=== PATIENT | male | born 1955 | race Caucasian/White ===

== ENCOUNTER 2017-05-26 16:50 | Inpatient (IN) ==
[2017-05-26] MEDS: SALINE FLUSH 10ml SYRINGE IVF PRN (17:15)
--- NOTE | 2017-05-26 17:17 | Emergency Department Report ---
Syncope HPI - General Chief Complaint: Syncope <Tete Joyce 05/26/17 17:20> Stated Complaint: Pulmonary Embolism <Maria Del CarmenMariolaTete Rere Tavo 05/26/17 17:20> Time Seen by Provider: 05/26/17 16:55 <Mariola Joycean Rere Tavo 05/26/17 17:20> Source: patient <Tete Joyce 05/26/17 17:20> Mode of arrival: ambulatory <Maria Del CarmenTete Rere Tavo 05/26/17 17:20> Limitations: no limitations <Mariola Joycean Rere Vo 05/26/17 17:20> - History of Present Illness HPI narrative: Pt presents with a c/o syncope. PT was here in late April with a c/o hip pain , chest pain and SOA when it was discovered he had a PE. Pt was then transferred to [facility] for treatment for PE as well as a left hip fracture. Once hip repaired pt was sent to a rehab facility from which he was dismissed to home 3 days ago. While in rehab pt was having some "dizzy spells" and discovered to have orthostatic hypotension. He is scheduled to see a client services administrator next wee. Since pt has been home he has had multiple episodes of LOC where he often finds himself waking on the floor with no idea to what happened prior. Pt lives by himself. <Maria Del CarmenMariolaTetesusan Vo 05/26/17 17:20> MD complaint: loss of consciousness <Tete Joyce 05/26/17 17:20> Onset (ago): unknown <Tete Joyce 05/26/17 17:20> Prodromal symptoms: none <Tete Joyce 05/26/17 17:20> Witnessed: no <Tete Joyce 05/26/17 17:20> Injuries sustained associated with event: none <Tete Joyce 05/26/17 17:20> Current symptoms: none <Tete Joyce 05/26/17 17:20> Treatments prior to arrival: none <Tete Joyce 05/26/17 17:20> - Related Data Home Medications Medication Instructions Recorded Confirmed Aspirin [Adult Aspirin Regimen] 81 mg PO DAILY 05/26/17 05/26/17 Atorvastatin [Lipitor] 20 mg PO HS 05/26/17 05/26/17 Escitalopram Oxalate [Lexapro] 10 mg PO DAILY 05/26/17 05/26/17 Fludrocortisone [Florinef] 0.1 mg PO BID 05/26/17 05/26/17 Insulin Aspart [Novolog] 1 - 5 unit SQ TIDWM 05/26/17 05/26/17 Metformin [Glucophage] 500 mg PO BIDWM 05/26/17 05/26/17 Midodrine [Proamatine] 10 mg PO TID 05/26/17 05/26/17 Multivit-Min/FA/Lycopen/Lutein 1 each PO DAILY 05/26/17 05/26/17 [Centrum Silver Tablet] Rivaroxaban [Xarelto] 15 mg PO WS 05/26/1718 <Tete Joyce 05/26/17 17:20> Allergies Allergy/AdvReac Type Severity Reaction Status Date / Time No Known Allergies Allergy Verified 05/26/17 17:35 <Tete Joyce 05/26/17 17:20> Review of Systems All systems: reviewed and negative except as stated <Tete Joyce 17:20> Constitutional: Reports: as per HPI <Tete Joyce 05/26/17 17:20> Cardiovascular: Reports: as per HPI <Tete Joyce 05/26/17 17:20> Respiratory: Reports: as per HPI <Tete Joyce 05/26/17 17:20> Genitourinary: Reports: as per HPI <Tete Joyce 05/26/17 17:20> [facility] Patient Stated Medical History Diabetes Mellitus Type 1 Yes <Tete Joyce 05/26/17 17:20> - Social History Smoking status: Unknown if ever smoked <Tete Joyce 05/26/17 17:20> Physical Exam - Limitations Limitations: no limitations <Tete Joyce 05/26/17 17:20> - General General appearance: alert, in no apparent distress <Tete Joyce 05/26 /18 17:20> - Normal Exams: Head:: Normocephalic without trauma <Tete Joyce 05/26/17 17:20> Eyes:: Pupils are PERRLA w/ EOMI <Tete Joyce 05/26/17 17:20> Chest/Respirations:: Clear all carrera, with good airflow <Tete Joyce 05/26/17 17:20> Cardiovascular:: Regular rate and rhythm, without murmur or gallop, Pulses 2+ all extremities, capillary refill, <2 seconds all extremities <Tete Joyce 05/26/17 17:20> Abdomen:: Bowel sounds positive, soft, non-tender, non-distended <Tete Joyce 05/26/17 17:20> Musculoskeletal:: No tenderness, or deformity noted, good range of motion, all extremities <Tete Joyce 05/26/17 17:20> Integumentary:: No rashes <Tete Joyce 05/26/17 17:20> Neurological:: Patient is alert, and oriented, cranial nerves, motor/sensory/ cerebellar, exams w/o gross deficits, to observation <Tete Joyce 17:20> Psychiatric:: Patient exhibits, appropriate attention, emotion and affect < Tete Joyce 05/26/17 17:20> Course Vital Signs Temperature 97.5 F 05/26/17 16:53 Pulse Rate 89 05/26/17 16:53 Respiratory Rate 18 05/26/17 16:53 Blood Pressure 93/57 05/26/17 16:53 Pulse Oximetry 100 05/26/17 16:53 Temperature 97.5 F 05/26/17 16:53 Pulse Rate 88 05/26/17 19:00 Respiratory Rate 20 05/26/17 18:30 Blood Pressure 131/79 05/26/17 19:00 Pulse Oximetry 98 05/26/17 19:00 <Tete Joyce 05/26/17 19:14> Syncope - MDM Narrative Medical decision making narrative: Lab and EKG reviewed. Pt extremely orthostatic. Pt received NS bolus followed by continuous fluids. PT has not had any syncopal episodes while in the ER. Dr Gallegos notified or HPI and findings will admit observations. <Tete Joyce - 05/26/17 19:14> - Differential Diagnosis Likely: syncope due to orthostatic hypotension, vasovagal syncope, dehydration <Tete Joyce - 05/26/17 17:20> - Lab Data Attestation: I reviewed the patient's lab results. <Tete Joyce - 05/26 19:14> Result diagrams: 05/26/17 17:20 05/26/17 17:20 <Tete Joyce - 05/26/17 17:20> Lab Results 05/26/17 05/26/17 05/26/17 Range/Units 17:20 17:20 18:10 WBC 8.9 (4.5-11.0) T/MM3 RBC 4.36 L (4.50-5.90) M/MM3 Hgb 12.5 L (13.5-17.5) GM/DL Hct 37.4 L (41-53) % MCV 85.8 (80-100) UM3 MCH 28.7 (26-34) UUG MCHC 33.4 (31-37) GM/DL RDW Std Deviation 40.0 (36.9-50.2) FL Plt Count 670 H D (130-400) T/MM3 MPV 9.3 L (9.4-12.4) UM3 Immature Gran % (Auto) 0.4 (0.0-0.5) % Neut % (Auto) 53.9 (33-66) % Lymph % (Auto) 33.1 (23-45) % [place] % (Auto) 7.6 (0-9.0) % Eos % (Auto) 4.3 H (0-4) % Baso % (Auto) 0.7 (0-2) % Neut # (Auto) 4.8 (1.8-7.7) T/MM3 Lymph # (Auto) 3.0 (1-4.8) T/MM3 [place] # (Auto) 0.7 (0-0.8) T/MM3 Eos # (Auto) 0.4 (0-0.5) T/MM3 Baso # (Auto) 0.1 (0-0.2) T/MM3 Abs Immat Gran (auto) 0.04 H (0.00-0.03) T/MM3 Turbidity < 20 (0-20) Sodium 139 (134-144) MEQ/L Potassium 4.1 (3.6-5) MEQ/L Chloride 98 (98-107) MEQ/L Carbon Dioxide 28 (22-30) MEQ/L Anion Gap 13 (5-15) MEQ/L BUN 28.0 H (9-20) MG/DL Creatinine 1.2 (0.8-1.5) MG/DL GFR Calculation 62 BUN/Creatinine Ratio 23 (6-26) RATIO Glucose 119 H (75-110) MG/DL Calculated Osmolality 275 (261-280) MOSM/KG Calcium 9.9 (8.4-10.2) MG/DL Total Bilirubin 0.60 (0.20-1.30) MG/DL Icterus Index < 2 (0-7) AST 20 (17-59) U/L ALT 33 (21-72) U/L Alkaline Phosphatase 100 (38-126) U/L Troponin I < 0.012 (0-0.12) ng/ml Total Protein 7.8 (6.3-8.2) G/DL Albumin 4.5 (3.5-5.0) G/DL Globulin 3.3 (2.4-3.6) G/DL Albumin/Globulin Ratio 1.4 (1.1-2.2) RATIO Specimen Hemolysis < 15 (0-25) Ur Collection Type Urine, clean catch Urine Color Yellow (YELLOW) Urine Clarity Sl cloudy Urine pH 5.5 (5.0-8.0) Ur Specific [place] >=1.030 H (1.015-1.025) Urine Protein 1+ A (NEGATIVE) Urine Glucose (UA) Negative (NEGATIVE) Urine Ketones Negative (NEGATIVE) Urine Occult Blood Negative (NEGATIVE) Urine Nitrate Negative (NEGATIVE) Urine Bilirubin Negative (NEGATIVE) Urine Urobilinogen 0.2 (NORMAL) EU/DL Ur Leukocyte Esterase Negative (NEGATIVE) Urine RBC 0-1 (0-3) /HPF Urine WBC 0-1 (0-5) /HPF Ur Squamous Epith Cells 5-10 Urine Bacteria Trace H (NEGATIVE) Hyaline Casts 1-3 /LPF Urine Mucus Present Ur Culture Indicated? Cult not indicated Urine Opiates Screen ng/mL Ur Oxycodone Screen ng/mL Urine Methadone Screen ng/mL Ur Propoxyphene Screen ng/mL Ur Barbiturates Screen ng/mL U Tricyclic Antidepress ng/mL Ur Phencyclidine Scrn ng/mL Ur Amphetamines Screen ng/mL U Methamphetamines Scrn ng/mL U Benzodiazepines Scrn ng/mL Urine Cocaine Screen ng/mL U Cannabinoids Screen ng/mL 05/26/17 Range/Units 18:10 WBC (4.5-11.0) T/MM3 RBC (4.50-5.90) M/MM3 Hgb (13.5-17.5) GM/DL Hct (41-53) % MCV (80-100) UM3 MCH (26-34) UUG MCHC (31-37) GM/DL RDW Std Deviation (36.9-50.2) FL Plt Count (130-400) T/MM3 MPV (9.4-12.4) UM3 Immature Gran % (Auto) (0.0-0.5) % Neut % (Auto) (33-66) % Lymph % (Auto) (23-45) % [place] % (Auto) (0-9.0) % Eos % (Auto) (0-4) % Baso % (Auto) (0-2) % Neut # (Auto) (1.8-7.7) T/MM3 Lymph # (Auto) (1-4.8) T/MM3 [place] # (Auto) (0-0.8) T/MM3 Eos # (Auto) (0-0.5) T/MM3 Baso # (Auto) (0-0.2) T/MM3 Abs Immat Gran (auto) (0.00-0.03) T/MM3 Turbidity (0-20) Sodium (134-144) MEQ/L Potassium (3.6-5) MEQ/L Chloride (98-107) MEQ/L Carbon Dioxide (22-30) MEQ/L Anion Gap (5-15) MEQ/L BUN (9-20) MG/DL Creatinine (0.8-1.5) MG/DL GFR Calculation BUN/Creatinine Ratio (6-26) RATIO Glucose (75-110) MG/DL Calculated Osmolality (261-280) MOSM/KG Calcium (8.4-10.2) MG/DL Total Bilirubin (0.20-1.30) MG/DL Icterus Index (0-7) AST (17-59) U/L ALT (21-72) U/L Alkaline Phosphatase (38-126) U/L Troponin I (0-0.12) ng/ml Total Protein (6.3-8.2) G/DL Albumin (3.5-5.0) G/DL Globulin (2.4-3.6) G/DL Albumin/Globulin Ratio (1.1-2.2) RATIO Specimen Hemolysis (0-25) Ur Collection Type Urine Color (YELLOW) Urine Clarity Urine pH (5.0-8.0) Ur Specific [place] (1.015-1.025) Urine Protein (NEGATIVE) Urine Glucose (UA) (NEGATIVE) Urine Ketones (NEGATIVE) Urine Occult Blood (NEGATIVE) Urine Nitrate (NEGATIVE) Urine Bilirubin (NEGATIVE) Urine Urobilinogen (NORMAL) EU/DL Ur Leukocyte Esterase (NEGATIVE) Urine RBC (0-3) /HPF Urine WBC (0-5) /HPF Ur Squamous Epith Cells Urine Bacteria (NEGATIVE) Hyaline Casts /LPF Urine Mucus Ur Culture Indicated? Urine Opiates Screen Negative ng/mL Ur Oxycodone Screen Negative ng/mL Urine Methadone Screen Negative ng/mL Ur Propoxyphene Screen Negative ng/mL Ur Barbiturates Screen Negative ng/mL U Tricyclic Antidepress Negative ng/mL Ur Phencyclidine Scrn Negative ng/mL Ur Amphetamines Screen Negative ng/mL U Methamphetamines Scrn Negative ng/mL U Benzodiazepines Scrn Negative ng/mL Urine Cocaine Screen Negative ng/mL U Cannabinoids Screen Negative ng/mL <Tete Joyce 05/26/17 19:14> - EKG Data EKG #1 EKG attestation: Yes: I reviewed and interpreted this EKG. <Tete Joyce 05/26/17 19:14> Yes: I reviewed and interpreted this EKG. <September,Manfred 05/26 17:47> EKG shows normal: sinus rhythm, intervals, QRS complexes, ST-T waves <September, Manfred 05/26/17 17:47> Hiram/QRS: left axis deviation <September,Manfred 05/26/17 17:47> Disposition Clinical Impression: Orthostatic hypotension <Tete Joyce 05/26/17 19:14> Disposition: 02 To [facility] [place] <Tete Joyce 05/26/17 19:14> Condition: Improved <Tete Joyce 05/26/17 19:14> Instructions: <Tete Joyce 05/26/17 17:20> Prescriptions: No Action Escitalopram Oxalate [Lexapro] 10 mg PO DAILY Atorvastatin [Lipitor] 20 mg PO HS Metformin [Glucophage] 500 mg PO BIDWM Insulin Aspart [Novolog] 1 - 5 unit SQ TIDWM Rivaroxaban [Xarelto] 15 mg PO WS Multivit-Min/FA/Lycopen/Lutein [Centrum Silver Tablet] 1 each PO DAILY Fludrocortisone [Florinef] 0.1 mg PO BID Midodrine [Proamatine] 10 mg PO TID Aspirin [Adult Aspirin Regimen] 81 mg PO DAILY <Tete Joyce 17:20> Referrals: Chalino Thrasher II, MD [Family Provider] - <Tete Joyce 05/26/17 17:20> Forms: <Tete Joyce 05/26/17 17:20> Time of Disposition: 19:14 <Tete Joyce 05/26/17 19:14> - Seen By: midlevel <Tete Joyce 05/26/17 19:14>
[2017-05-26] MEDS ORDERED: NS 1,000 ML IV ONE (17:39)
[2017-05-26] MEDS: NS 1,000 ML IV SCH ×2 (19:28→23:43)
--- NOTE | 2017-05-26 19:40 | History & Physical Report ---
History of Present Illness Date: 05/27/17 Chief complaint: syncope HPI: Very pleasant 61-year-old male presents to the emergency room with syncope. He' s had 2 episodes of syncope since being discharged from his rehab stay on Wednesday.p Come essentially with no prodrome, but they have become when he's been standing and using his walker. He is actually had orthostasis and has had multiple syncopal episodes even during his rehab stay and even prior to that. He was recently treated for a saddle pulmonary embolism and fell and broke his hip. This was repaired, he was treated for the pulmonary embolism (not sure if he was thrombolyzed). He does take Midorine and Florinef but does not take any blood pressure lowering agents, he has not had nausea or vomiting. He denies diarrhea. He denies any fever or chills. His home health nurse came to check on him today, they felt he was ill, and actually were unable to even register a blood pressure when he stood. Because of this he recommended he return to the emergency room. He states that he had an echocardiogram performed when he was on his rehab stay but he didn't learn the results. He doesn't know if he had other workup regarding his adrenal glands. He's never had a colonoscopy before. He doesn't know if he had CT of his abdomen or other workup for occult malignancy. He's had recent weight loss over the past weeks of about 45 pounds was unintentional. He's been quite fatigued but he denies any night sweats. He denies dysphagia or odynophagia and denies abdominal pain. He denies need for any pain medicines for his recent hip fracture. He does have some mild neuropathy in his fingers in his toes but he says that has not been progressive over the past 3 years. His sugars typically range from 150- 250 in his hemoglobin A1c uses hasn't been checked since 2013 he thinks. Review of Systems All systems PM: 10-point ROS was reviewed, no additional remarkable complaints except Past Medical History Patient Stated Medical History Diabetes Mellitus Type 1 Yes Medical History Updates: Saddle pulmonary embolism now on anticoagulation. Diabetes mellitus type 2 with peripheral neuropathy Surgical History: hip replacement after fracture Family History Updates: asked and noncontributory - Social History Smoking status: Unknown if ever smoked Medications Home Medications Medication Instructions Recorded Confirmed Type Aspirin [Adult Aspirin Regimen] 81 mg PO DAILY 05/26/17 05/26/17 History Atorvastatin [Lipitor] 20 mg PO HS 05/26/17 05/26/17 History Escitalopram Oxalate [Lexapro] 10 mg PO DAILY 05/26/17 05/26/17 History Fludrocortisone [Florinef] 0.1 mg PO BID 05/26/17 05/26/17 History Insulin Aspart [Novolog] 1 - 5 unit SQ TIDWM 05/26/17 05/26/17 History Metformin [Glucophage] 500 mg PO BIDWM 05/26/17 05/26/17 History Midodrine [Proamatine] 10 mg PO TID 05/26/17 05/26/17 History Multivit-Min/FA/Lycopen/Lutein 1 each PO DAILY 05/26/17 05/26/17 History [Centrum Silver Tablet] Rivaroxaban [Xarelto] 15 mg PO BID 05/26/17 05/26/17 History Allergies Allergy/AdvReac Type Severity Reaction Status Date / Time No Known Allergies Allergy Verified 05/26/17 17:35 Exam Vital Signs: Temperature 97.5 F 05/26/17 16:53 Pulse Rate 88 05/26/17 19:00 Respiratory Rate 20 05/26/17 18:30 Blood Pressure 131/79 05/26/17 19:00 Pulse Oximetry 98 05/26/17 19:00 Height/Weight/BMI: Height 1.8 m Weight 80.2 kg - Constitutional Present: no acute distress, thin Comments: in general he is quite pleasant he is alert and oriented 3 he is in no obvious distress He appears perhaps older than stated age He appears thin and mildly malnourished HEENT ears clear oropharynx is clear Lungs are clear bilaterally. Cardiovascular regular without murmur gallop or rub Abdomen soft benign nontender Extremities trace edema Results - Labs CBC & Chem 7: 05/26/17 17:20 05/26/17 17:20 - ECG Data Tracing #1 Arrhythmias present: other ( normal sinus rhythm left axis deviation flattened T waves diffusely nonspecific finding) - Imaging and Cardiology Chest x-ray Status: image reviewed by me ( didn't see any infiltrates and normal cardiac silhouette) Assessment and Plan (1) Syncope due to orthostatic hypotension Current visit: Yes Status: Acute (2) Pulmonary embolism Current visit: Yes Status: Acute (3) DM type 2 (diabetes mellitus, type 2) Current visit: Yes Status: Acute (4) Diabetic neuropathy Current visit: Yes Status: Acute (5) Unintentional weight loss of 10% body weight within 6 months Current visit: Yes Status: Acute Assessment and Plan: 1. syncope due to orthostatic hypotension 2. Recent saddle pulmonary embolism which could be causing some decreased venous return 3. Unintentional weight loss over the past several weeks, recent pulmonary embolism makes me concerned for occult malignancy 4. Diabetes mellitus type 2 with peripheral neuropathy 5. Hip fracture with inability IV fluids We need to get echo results as well as other workup from [facility] continue diabetic treatments along with Zaroxolyn O I've ordered a.m. cosyntropin stim test Resuscitation Status: Full Code - Physician Narrative Physician: Yessica Welch MD Narrative: Date: 05/27/17 Time: 1200 Please see H&P dictated by me on 05/27. Hospital Course Summary Disclaimer: The visit summary below is not to be considered part of the above Progress Note.
[2017-05-26] MEDS ORDERED: HYDROCODONE/APAP 5mg/325mg TABLET PO PRN (20:51)
[2017-05-26] MEDS ORDERED: MORPHINE SULFATE 2mg INJECTION IVP PRN (20:51)
[2017-05-26] MEDS ORDERED: METOCLOPRAMIDE 10mg/2ml INJECTION IVP PRN (20:51)
[2017-05-26] MEDS ORDERED: ACETAMINOPHEN 325 MG TABLET PO PRN (20:51)
[2017-05-26] MEDS ORDERED: ONDANSETRON 4 MG/2 ML INJECTION IVP PRN (20:51)
[2017-05-26] MEDS: FLUDROCORTISONE 0.1 MG TABLET PO SCH (22:39)
[2017-05-26] MEDS: ATORVASTATIN 20 MG TABLET PO SCH (22:39)
[2017-05-26] MEDS: RIVAROXABAN 15 MG TABLET PO SCH (22:40)
[2017-05-27] MEDS ORDERED: COSYNTROPIN 0.25 MG IVP ONE (06:00)
[2017-05-27] MEDS: NS 1,000 ML IV SCH ×4 (06:37→20:54)
--- NOTE | 2017-05-27 08:23 | XRay Report ---
INDICATION: syncope, hx PE PROCEDURE: CHEST 2-VIEWS UPRIGHT (PA & LAT) Encounter: Initial COMPARISON: 05/07/2017 FINDINGS: The lungs are clear without evidence of focal abnormal airspace opacity. There is no pleural effusion or pneumothorax. The heart size, mediastinal contours and pulmonary vascularity are within normal limits. There is no significant skeletal abnormality. IMPRESSION: No acute cardiopulmonary disease. .
[2017-05-27] MEDS: INSULIN ASPART 100unit/ml INJECTION SQ SCH ×3 (08:56→16:40)
[2017-05-27] MEDS ORDERED: MIDODRINE 5 MG TABLET PO SCH (09:00)
[2017-05-27] MEDS: MIDODRINE 10 MG TABLET PO SCH ×2 (09:08→14:09)
[2017-05-27] MEDS: FLUDROCORTISONE 0.1 MG TABLET PO SCH ×2 (09:08→22:24)
[2017-05-27] MEDS: RIVAROXABAN 15 MG TABLET PO SCH ×2 (09:08→16:49)
[2017-05-27] MEDS: METFORMIN 500 MG TABLET PO SCH ×2 (09:09→16:49)
[2017-05-27] MEDS: ESCITALOPRAM 10 MG TABLET PO SCH (09:09)
[2017-05-27] MEDS: MULTI-VIT + MINERAL (Opti-gen) TABLET PO SCH (09:09)
[2017-05-27] MEDS: ASPIRIN *EC* 81 MG TABLET PO SCH (09:11)
[2017-05-27] MEDS: INSULIN ASPART 100unit/ml INJECTION SQ PRN ×2 (11:02→16:40)
[2017-05-27] MEDS ORDERED: INFLUENZA VAC. INJ. ADMIN CHARGE INJ ONE (11:17)
[2017-05-27] MEDS ORDERED: INFLUENZA VAC QIV 2017-18 (Fluarix*)(>=3yo) 0.5ml IM ONE (11:17)
[2017-05-27] MEDS ORDERED: FLUDROCORTISONE 0.1 MG TABLET PO ONE (12:09)
[2017-05-27] MEDS ORDERED: RIVAROXABAN 15 MG TABLET PO SCH (17:30)
--- NOTE | 2017-05-27 19:35 | History & Physical Report ---
History of Present Illness Date: 05/28/17 Chief complaint: syncope/falls HPI: Mr. Sharif is 61-year-old male presents to the emergency room with orthostatic hypotension and syncope. He's had 2 episodes of syncope since being discharged from his rehab stay 2 days earlier. He was initially hospitalized at [facility] on 05/07 with a saddle pulmonary emboli and found to have a hip fracture the following day for which he underwent left total hip arthroplasty on 05/09. He subsequently discharged to [facility] about 5 days later. While at rehabilitation he had multiple near syncopal events due to orthostatic hypotension that required the staff lower him to the floor or a chair to prevent him from actually falling or passing out. He was started on Florinef and ProAmatine and discharged from rehabilitation was delayed due to recurring orthostasis for several days. He was discharged Wednesday of this week and on Wednesday he had a syncopal event without any warning symptoms reported that he simply woke up laying on the floor and somewhat confused. He knows he was walking in the house but did not have any warning lightheadedness or change in his vision to suggest that he was going to pass out. Yesterday he was seen by his home health nurse who could not obtain a standing blood pressure. He again had an episode of feeling very dizzy and nearly falling while walking in the house yesterday but was able to brace himself and prevent the fall by sitting down. Oral intake has been very good he denies nausea/vomiting/diarrhea area and he has not had fever or other symptoms that would suggest volume depletion. He has lost about 45 pounds of weight over the past 8-9 weeks unintentionally. He reports having an echocardiogram and some sort of CT scan done of either his chest or abdomen or both while he was at rehabilitation. Discharge summary from [facility] was obtained and confirms that an echo or CT was not obtained while he was an inpatient. He was anticoagulated with Xarelto for the PE and it does not appear that thrombolyzed this was utilized to need for surgical intervention of the hip. Review of Systems All systems PM: 10-point ROS was reviewed, no additional remarkable complaints except (numbness in his finger and toe tips, episodically feels totally drained/ weak; no dysphagia or odynophagia. Patient reports he had Dopplers of his legs and carotid Dopplers done at [facility]. Patient does not describe any triggering event for the PE.) Past Medical History Medical History Updates: Saddle pulmonary embolism now on anticoagulation. Diabetes mellitus type 2 with peripheral neuropathy Surgical History: Left CONCHIS-05/09/17, Dr. Verduzco Family History: Mother-, dementia Father-COPD, genetic visual loss Maternal grandmother-, colon cancer Family History Updates: . 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, Cristela Sharif-[facility] Full code Medications Home Medications Medication Instructions Recorded Confirmed Type Aspirin [Adult Aspirin Regimen] 81 mg PO DAILY 05/26/17 05/26/17 History Atorvastatin [Lipitor] 20 mg PO HS 05/26/17 05/26/17 History Escitalopram Oxalate [Lexapro] 10 mg PO DAILY 05/26/17 05/26/17 History Fludrocortisone [Florinef] 0.1 mg PO BID 05/26/17 05/26/17 History Insulin Aspart [Novolog] 1 - 5 unit SQ TIDWM 05/26/17 05/26/17 History Metformin [Glucophage] 500 mg PO BIDWM 05/26/17 05/26/17 History Midodrine [Proamatine] 10 mg PO TID 05/26/17 05/26/17 History Multivit-Min/FA/Lycopen/Lutein 1 each PO DAILY 05/26/17 05/26/17 History [Centrum Silver Tablet] Rivaroxaban [Xarelto] 15 mg PO BID 05/26/17 05/26/17 History Allergies Allergy/AdvReac Type Severity Reaction Status Date / Time No Known Allergies Allergy Verified 05/26/17 17:35 Exam Vital Signs: Temperature 97.3 F 05/27/17 15:00 Pulse Rate 78 05/27/17 15:00 Respiratory Rate 18 05/27/17 15:00 Blood Pressure 162/90 H 05/27/17 15:00 Pulse Oximetry 99 05/27/17 15:00 EXAM: General-NAD alert supine 144/78, 70 standing 87/58, 80 HEENT-PERRL, EOMI without nystagmus, conjugate gaze, conjunctiva clear, sclera anicteric, facial structures symmetric, oropharynx clear-multiple missing teeth , neck supple and without adenopathy Lungs-respirations nonlabored, good airflow, breath sounds clear Cardiac-cardiac rhythm regular, S1 and S2 Abd-soft, nontender, without palpable mass, bowel sounds present Ext-without edema Skin-without rash/wounds Neuro-cranial nerves 3-12 intact, motor tone/power within normal limits, no drift upper extremities, sensation intact to light touch 4 extremities Psych-calm, cooperative Results - Labs CBC & Chem 7: 05/26/17 17:20 05/26/17 17:20 Labs: Liver enzymes normal, troponin less than 0.012 PSA 6.6 Fasting cortisol 15 increasing to 28 following stimulation UA specific gravity > 1.03, ketones negative; UDS negative - ECG Data Tracing #1 I reviewed this ECG and interpreted as documented below: (normal sinus rhythm, no acute ST/T-wave changes, LAD and unchanged from 12-lead in April.) - Imaging and Cardiology Chest x-ray Status: image reviewed by me (chest x-ray reviewed by myself-unremarkable) Assessment and Plan (1) Syncope due to orthostatic hypotension Current visit: Yes Status: Acute (2) Pulmonary embolism Problem details: Saddle PE 05/07/17 Current visit: Yes Status: Acute Assessment and Plan: Impression: Recurrent syncope/near syncope due to orthostatic hypotension Orthostatic hypertension Saddle pulmonary emboli, recent Diabetes mellitus with neuropathy, chronic insulin therapy Unintentional weight loss Recent hip fracture,s/p left CONCHIS Plan: Continue IV fluids, increase Florinef to 0.2 mg twice a day, continue ProAmatine at 10 mg tid-patient denies any edema/urinary symptoms at present with medications. Resume NICOLLE hose. We need to get echo results as well as other workup from [facility]; no work done up at [facility] based on my review of discharge summary. PT/OT, IRU evaluation PSA modestly elevated-Will ask urology to evaluate. Cortisol levels adequate. Continue Xarelto. Inpatient status due to hemodynamic instability and recurrent syncope. DVT Prophylaxis: Xarelto Resuscitation Status: Full Code - Physician Narrative Narrative: Date: 05/27/17 Time: 1927 Hospital Course Summary Disclaimer: The visit summary below is not to be considered part of the above Progress Note. Hospital Course: 05/26/17-05/27/17-admission Recurrent near syncope/syncope with profound orthostatic hypotension following a recent saddle pulmonary emboli. Patient was found to have left hip fracture at the time of the PE as well and underwent left CONCHIS in late April. Florinef dose increased, continue Midodrine, add NICOLLE hose; hydrate. Unintentional weight loss of 45 pounds over the last 2 months. PSA moderately elevated. We will discuss with urology. Obtaining additional information from [facility]. PT/OT/IRU evaluation.
[2017-05-27] MEDS: ATORVASTATIN 20 MG TABLET PO SCH (20:54)
[2017-05-28] MEDS: NS 1,000 ML IV SCH ×2 (03:50→11:19)
[2017-05-28] MEDS: MIDODRINE 10 MG TABLET PO SCH ×3 (06:24→14:28)
[2017-05-28] MEDS: METFORMIN 500 MG TABLET PO SCH ×2 (08:31→17:35)
[2017-05-28] MEDS: INSULIN ASPART 100unit/ml INJECTION SQ SCH ×3 (08:31→17:35)
[2017-05-28] MEDS: ASPIRIN *EC* 81 MG TABLET PO SCH (08:31)
[2017-05-28] MEDS: MULTI-VIT + MINERAL (Opti-gen) TABLET PO SCH (08:32)
[2017-05-28] MEDS: ESCITALOPRAM 10 MG TABLET PO SCH (08:32)
[2017-05-28] MEDS: FLUDROCORTISONE 0.1 MG TABLET PO SCH ×2 (08:32→14:28)
[2017-05-28] MEDS: RIVAROXABAN 15 MG TABLET PO SCH ×2 (08:36→17:36)
[2017-05-28] MEDS ORDERED: IOHEXOL 300mg/ml 100ml INJECTION ONE (12:12)
[2017-05-28] MEDS ORDERED: NS 100 ML ONE (12:12)
[2017-05-28] MEDS ORDERED: SALINE FLUSH 10ml SYRINGE ONE (12:12)
--- NOTE | 2017-05-28 13:09 | CT Scan Report ---
Indication: unexplained wt loss/PE PROCEDURE: CT abdomen pelvis w con: Encounter: Initial Comparison: None Technique: Axial CT images were performed through the abdomen and pelvis after the administration of intravenous contrast. Coronal and sagittal two-dimensional reformats. Automated Exposure Control and Iterative Reconstruction dose reducing techniques were utilized. Contrast: Omnipaque 300 100 mL Findings: The lung bases are clear. The liver demonstrates abnormal low-attenuation in segments 8, 5 and 4B. This is somewhat ill-defined and permeative extending along the course of the middle hepatic vein. This is best seen on axial images 14-25. There is also some low attenuation in involving the hepatic dome. The middle hepatic vein also appears asymmetrically enlarged compared to the other veins. The portal vein is widely patent. No bile duct dilatation. The gallbladder is contracted. The spleen is normal. The pancreas and adrenal glands are within normal limits. The kidneys are normal. No abdominal or pelvic adenopathy. There are two oval low-attenuation region seen in the left gluteus diamond muscle measuring up to 3.5 cm in diameter on axial image #81 which appear to track down into a larger left hip joint effusion. Bladder is obscured by metallic artifact from a left hip replacement. Prostate is mildly enlarged. No free fluid or evidence of a bowel obstruction. The appendix is normal. Bone windows show no lytic or blastic osseous lesion. L5 spondylolysis noted without spondylolisthesis. Impression: 1. Abnormal appearance of the liver with areas of decreased attenuation or hypoenhancement seen in the central right lobe. Given the presence of an expanded hepatic vein and the patient's recent pulmonary embolus this could be due to hepatic vein thrombosis and associated perfusion changes or developing hepatic infarct. Recommend correlation with liver function tests. Liver Doppler ultrasound can be performed for further evaluation of the hepatic veins. If these tests are unrevealing a contrast enhanced abdominal MRI would be recommended for further characterization of these changes to exclude a neoplastic/metastatic etiology. Geographic fatty infiltration is also within the differential. 2. No obvious primary malignancy seen in the abdomen or pelvis. .
[2017-05-28] MEDS: INSULIN ASPART 100unit/ml INJECTION SQ PRN (14:27)
[2017-05-28] MEDS: NS with KCL 20 mEq 1,000 ML IV SCH (14:41)
--- NOTE | 2017-05-28 16:29 | Progress Note ---
- Date 05/28/17 Subjective: Patient is seen sitting in his room. Overall, he reports he is feeling fine. States he just wants to find out what's going on. In review of his history, he states right before Halloween he started feeling very weak and didn't have an appetite. States his strength was about 10% of normal. This is about the time that he started having the syncopal episodes. During this time he also discontinued drinking soda which he thinks contributes to his weight loss. He states he was quite sedentary during this time to to his weakness, and then more so after he had the fall where he broke his hip. He didn't realize he had broken his hip until he was imaged at [place] where he had been sent for the pulmonary emboli. He has not been having any chest pain, he does get winded at times. No nausea or vomiting. Bowels are moving. States that his urine there are times that he doesn't feel like he empties completely. He typically does not have to get up overnight to use the bathroom. Objective Vital signs: Temperature 98.2 F 05/28/17 08:02 Pulse Rate 85 05/28/17 14:34 Respiratory Rate 14 05/28/17 08:02 Blood Pressure 143/71 H 05/28/17 14:34 Pulse Oximetry 99 05/28/17 08:02 Height/Weight/BMI: Weight 112.3 kg - Constitutional Present: no acute distress, well developed, thin - Routine HEENT Exam Head: Present: normocephalic, atraumatic - Routine Respiratory Exam Present: CTA bilaterally. Absent: wheezes - Routine Cardiovascular Exam Present: RRR. Absent: murmur - Routine Abdominal Exam Present: soft, normoactive bowel sounds, non distended. Absent: tenderness - Routine Extremities Exam Present: no edema, normal capillary refill - Routine Skin Exam Present: dry, warm - Routine Neurological Exam Present: alert, oriented X3 - Routine Lymphatic Exam Lymphatic: Absent: adenopathy - Routine Psychiatric Exam Present: normal affect, cooperative Results - Labs CBC & Chem 7: 05/26/17 17:20 05/28/17 10:21 - Echocardiogram Echocardiogram: Currently pending - Imaging and Cardiology CT scan - abdomen Additional comments: Date of Exam: 05/28/17 Indication: unexplained wt loss/PE PROCEDURE: CT abdomen pelvis w con: Findings: The lung bases are clear. The liver demonstrates abnormal low-attenuation in segments 8, 5 and 4B. This is somewhat ill-defined and permeative extending along the course of the middle hepatic vein. This is best seen on axial images 14-25. There is also some low attenuation in involving the hepatic dome. The middle hepatic vein also appears asymmetrically enlarged compared to the other veins. The portal vein is widely patent. No bile duct dilatation. The gallbladder is contracted. The spleen is normal. The pancreas and adrenal glands are within normal limits. The kidneys are normal. No abdominal or pelvic adenopathy. There are two oval low-attenuation region seen in the left gluteus diamond muscle measuring up to 3.5 cm in diameter on axial image #81 which appear to track down into a larger left hip joint effusion. Bladder is obscured by metallic artifact from a left hip replacement. Prostate is mildly enlarged. No free fluid or evidence of a bowel obstruction. The appendix is normal. Bone windows show no lytic or blastic osseous lesion. L5 spondylolysis noted without spondylolisthesis. Impression: 1. Abnormal appearance of the liver with areas of decreased attenuation or hypoenhancement seen in the central right lobe. Given the presence of an expanded hepatic vein and the patient's recent pulmonary embolus this could be due to hepatic vein thrombosis and associated perfusion changes or developing hepatic infarct. Recommend correlation with liver function tests. Liver Doppler ultrasound can be performed for further evaluation of the hepatic veins. If these tests are unrevealing a contrast enhanced abdominal MRI would be recommended for further characterization of these changes to exclude a neoplastic/metastatic etiology. Geographic fatty infiltration is also within the differential. 2. No obvious primary malignancy seen in the abdomen or pelvis. liver Doppler Additional comments: Pending Assessment and Plan (1) Pulmonary embolism Problem details: Saddle PE 05/07/17 Current visit: Yes Status: Acute (2) Syncope due to orthostatic hypotension Current visit: Yes Status: Acute Assessment and Plan: Impression: Recurrent syncope/near syncope due to orthostatic hypotension Orthostatic hypertension Saddle pulmonary emboli, recent Hypokalemia - not present on admission Diabetes mellitus with neuropathy, chronic insulin therapy Unintentional weight loss Recent hip fracture,s/p left CONCHIS Plan: Continue IV fluids, increase Florinef to 0.2 mg twice a day dosed at 0700 and 1400, continue ProAmatine at 10 mg dosed at 0700, 1100, 1500 Orthostatics this afternoon showed a 20 point drop systolic from supine to standing. He doesn't always get dizzy with standing. CT abdomen was performed given his unexplained weight loss and PE. - CT revealed abnormal appearance of the liver with areas of hypoenhancement seen in the central right lobe and expanded hepatic vein. Given the presence of an expanded hepatic vein and the patient's recent pulmonary embolus this could be due to hepatic vein thrombosis and associated perfusion changes or developing hepatic infarct. Liver enzymes are normal. Liver Doppler ultrasound was performed for further evaluation of the hepatic veins. - These results are pending. Per radiology- if these tests are unrevealing a contrast enhanced abdominal MRI would be recommended for further characterization of these changes to exclude a neoplastic/metastatic etiology. Potassium slightly low today. Supplemented PO and potassium added to IV fluids. PSA modestly elevated-Dr. Welch to determine if urology needs to consult while he is inpatient. - Physician Narrative Physician: Yessica Welch MD Narrative: Date: 05/28/17 Time: 2099 I have independently evaluated and examined this patient. I reviewed the chart, the patient's history, and the CASH CONTROL SPECIALIST/PA's documented findings as above. We discussed and formulated the assessment and plan as above with additions as below: Ez reports minimal lightheadedness today and some exertional dyspnea. Records were obtained from [facility] with evidence of carotid Dopplers, lower extremity Dopplers, and chest x-ray done but no evidence of echocardiogram. Patient is alert and in no distress Respirations are nonlabored with good airflow and clear breath sounds Cardiac rhythm is regular with normal S1 and S2 Patient reports about 2 months history of lightheadedness with several falls prior to the pulmonary emboli/hip fracture. He fell the day after [place] injuring his hip after which he was minimally ambulatory getting up only to go to the bathroom or move from bed to couch. I suspect the relative immobilization during this time predisposed him to embolic events. By history orthostasis precedes the PE and corresponds to the. During which he describes loss of appetite, unintentional weight loss, and no energy. He denies increased depressive symptoms (acknowledges chronic depression but reports no recent triggers) and hasn't felt unusually stressed in recent months. I remain main concern that there is an underlying malignancy-CTA was negative for pulmonary mass; CEA negative, PSA modestly elevated; CT abdomen/pelvis obtained today revealing hypoattenuation in the central right hepatic lobe as described above without hepatic or portal vein thrombosis. Liver enzymes are normal and infiltrative process is unlikely will screen alpha-fetoprotein and anticipate proceeding with MR imaging. In addition we'll check SPEP and CA 19- 9. No evidence of renal mass or adenopathy on CT by my review or report of radiology. As discussed with procurement coordinator-being considered for acceptance there when medically stable. Hospital Course Summary Disclaimer: The visit summary below is not to be considered part of the above Progress Note. Hospital Course: 05/26/17-05/27/17-admission Recurrent near syncope/syncope with profound orthostatic hypotension following a recent saddle pulmonary emboli. Patient was found to have left hip fracture at the time of the PE as well and underwent left CONCHIS in late April. Florinef dose increased, continue Midodrine, add NICOLLE hose; hydrate. Unintentional weight loss of 45 pounds over the last 2 months. PSA moderately elevated. We will discuss with urology. Obtaining additional information from [facility]. PT/OT/IRU evaluation. 05/28/17 Continue increased Florinef dose of 0.2 mg timed to be given when he is most active as opposed to a dose in the evening or bedtime. Continue Midodrin. Unable to locate echocardiogram from [place]. Echocardiogram performed here and results are pending. Abdominal CT performed due to his unintentional weight loss showing hepatic vein dilation prompting liver Doppler to be performed as well-no evidence of portal or hepatic vein thrombosis. Continue evaluation for malignancy with SPEP, alpha-fetoprotein, CA-19-9
--- NOTE | 2017-05-28 16:56 | Ultrasound Report ---
Indication: abnl liver findings on CT, wt loss PROCEDURE: US abd/pelvic doppler complete: Encounter: Initial Comparison: CT abdomen and pelvis from earlier today Technique: Grayscale and color Doppler sonographic imaging of the liver was performed with Doppler evaluation of the hepatic vasculature. Findings: Pancreas could not be visualized due to shadowing bowel gas. Hepatic parenchyma appears heterogeneous with a region of hypoechogenicity in the right lobe corresponding to the abnormality seen on CT. The main portal vein is patent with appropriate flow direction and slightly elevated velocity of 40 cm/s. The left, middle and right hepatic veins appear patent with appropriate flow direction. The hepatic artery is patent with a peak systolic velocity of 39.37 m/s, end diastolic velocity of 16.3 cm/s and resistive index of 0.58. The common bile duct is normal in caliber at 3 mm. The gallbladder is contracted with borderline wall thickening, probably due to the decompressed state. There is an area of sludge or polyp seen in the gallbladder measuring 4 mm in size. Sonographic Hoover's sign was reportedly negative. The right kidney is normal measuring 10.8 cm in length. No hydronephrosis. Impression: Hepatic and portal veins are patent. Heterogeneous echotexture of the liver. This could be due to transient perfusion phenomenon, geographic fatty infiltration, or less likely infiltrative mass. Liver infarct is essentially excluded given the normal AST and ALT. Contrast-enhanced abdominal MRI with Eovist may be helpful for further evaluation. .
[2017-05-28] MEDS: ATORVASTATIN 20 MG TABLET PO SCH (21:48)
[2017-05-29] MEDS: NS with KCL 20 mEq 1,000 ML IV SCH (04:08)
[2017-05-29] MEDS: MIDODRINE 10 MG TABLET PO SCH ×3 (06:42→15:51)
[2017-05-29] MEDS: FLUDROCORTISONE 0.1 MG TABLET PO SCH ×2 (06:43→15:51)
[2017-05-29] MEDS: MULTI-VIT + MINERAL (Opti-gen) TABLET PO SCH (09:15)
[2017-05-29] MEDS: RIVAROXABAN 15 MG TABLET PO SCH ×2 (09:16→17:42)
[2017-05-29] MEDS: ASPIRIN *EC* 81 MG TABLET PO SCH (09:16)
[2017-05-29] MEDS: ESCITALOPRAM 10 MG TABLET PO SCH (09:16)
[2017-05-29] MEDS: METFORMIN 500 MG TABLET PO SCH ×2 (09:16→17:42)
[2017-05-29] MEDS: INSULIN ASPART 100unit/ml INJECTION SQ SCH ×4 (09:19→17:42)
--- NOTE | 2017-05-29 12:00 | Progress Note ---
- Date 05/29/17 Subjective: Feeling a little better but still dizzy on standing at times. Eating and drinking. Has not been OOB much but is wanting to work with PT. Lives alone. Has lost 40# in several months but not trying; feels he still eats "plenty". Objective Vital signs: Temperature 99 F 05/29/17 11:09 Pulse Rate 79 05/29/17 11:10 Respiratory Rate 16 05/29/17 11:09 Blood Pressure 118/67 05/29/17 11:10 Pulse Oximetry 96 05/28/17 23:57 Height/Weight/BMI: Weight 114.6 kg - Constitutional Present: no acute distress, cooperative - Routine HEENT Exam Head: Present: normocephalic, atraumatic Eye: Present: PERRL. Absent: conjunctival icterus ENT: Present: mucous membranes moist, oropharynx clear - Routine Respiratory Exam Present: CTA bilaterally. Absent: rhonchi, wheezes, crackles - Routine Cardiovascular Exam Present: RRR. Absent: murmur - Routine Abdominal Exam Present: soft, non distended, non tender - Routine Extremities Exam Present: no edema, pulses intact - Routine Skin Exam Present: dry, warm. Absent: rash - Routine Neurological Exam Present: alert, moving all extremities, normal speech - Routine Psychiatric Exam Present: normal affect Results - Labs CBC & Chem 7: 05/29/17 04:35 05/29/17 04:35 - Impressions 05/28/17 PROCEDURE: CT abdomen pelvis w con: Encounter: Initial Comparison: None Technique: Axial CT images were performed through the abdomen and pelvis after the administration of intravenous contrast. Coronal and sagittal two-dimensional reformats. Automated Exposure Control and Iterative Reconstruction dose reducing techniques were utilized. Contrast: Omnipaque 300 100 mL Findings: The lung bases are clear. The liver demonstrates abnormal low-attenuation in segments 8, 5 and 4B. This is somewhat ill-defined and permeative extending along the course of the middle hepatic vein. This is best seen on axial images 14-25. There is also some low attenuation in involving the hepatic dome. The middle hepatic vein also appears asymmetrically enlarged compared to the other veins. The portal vein is widely patent. No bile duct dilatation. The gallbladder is contracted. The spleen is normal. The pancreas and adrenal glands are within normal limits. The kidneys are normal. No abdominal or pelvic adenopathy. There are two oval low-attenuation region seen in the left gluteus diamond muscle measuring up to 3.5 cm in diameter on axial image #81 which appear to track down into a larger left hip joint effusion. Bladder is obscured by metallic artifact from a left hip replacement. Prostate is mildly enlarged. No free fluid or evidence of a bowel obstruction. The appendix is normal. Bone windows show no lytic or blastic osseous lesion. L5 spondylolysis noted without spondylolisthesis. Impression: 1. Abnormal appearance of the liver with areas of decreased attenuation or hypoenhancement seen in the central right lobe. Given the presence of an expanded hepatic vein and the patient's recent pulmonary embolus this could be due to hepatic vein thrombosis and associated perfusion changes or developing hepatic infarct. Recommend correlation with liver function tests. Liver Doppler ultrasound can be performed for further evaluation of the hepatic veins. If these tests are unrevealing a contrast enhanced abdominal MRI would be recommended for further characterization of these changes to exclude a neoplastic/metastatic etiology. Geographic fatty infiltration is also within the differential. 2. No obvious primary malignancy seen in the abdomen or pelvis. Assessment and Plan Assessment and Plan: Impression: Recurrent syncope/near syncope due to orthostatic hypotension Orthostatic hypertension Saddle pulmonary emboli, recent Hypokalemia - not present on admission Diabetes mellitus with neuropathy, chronic insulin therapy Unintentional weight loss Recent hip fracture,s/p left CONCHIS Hypokalemia Concern for occult malignancy; CTAP unrevealing, US pending--> CA 19-9 and CEA normal Plan: Hold further IVF today and monitor on po intake and increases Florinef 0.2 mg twice a day dosed at 0700 and 1400 Continue ProAmatine at 10 mg dosed at 0700, 1100, 1500 Recheck orthostatic BP this afternoon and in AM Follow abdominal US results and if unrevealing will obtain contrast-enhanced MRI tomorrow. Supplement po potassium and recheck labs in AM (renal panel, CBC, Mg) PSA modestly elevated- may need outpatient urology consult if no other malignant issues revealed F/U on pending AFP level DVT Prophylaxis: SCD's Resuscitation Status: Full Code - Physician Narrative Physician: Emilie Evans MD Narrative: Date: 05/29/17 Time: 1156 Hospital Course Summary Disclaimer: The visit summary below is not to be considered part of the above Progress Note. Hospital Course: 05/26/17-05/27/17-admission Recurrent near syncope/syncope with profound orthostatic hypotension following a recent saddle pulmonary emboli. Patient was found to have left hip fracture at the time of the PE as well and underwent left CONCHIS in late April. Florinef dose increased, continue Midodrine, add NICOLLE hose; hydrate. Unintentional weight loss of 45 pounds over the last 2 months. PSA moderately elevated. We will discuss with urology. Obtaining additional information from [facility]. PT/OT/IRU evaluation. 05/28/17 Continue increased Florinef dose of 0.2 mg timed to be given when he is most active as opposed to a dose in the evening or bedtime. Continue Midodrin. Unable to locate echocardiogram from [place]. Echocardiogram performed here and results are pending. Abdominal CT performed due to his unintentional weight loss showing hepatic vein dilation prompting liver Doppler to be performed as well-no evidence of portal or hepatic vein thrombosis. Continue evaluation for malignancy with SPEP, alpha-fetoprotein, CA-19-9 05/29/17 Hold further IVF today and monitor on po intake and increases Florinef 0.2 mg twice a day dosed at 0700 and 1400 Continue ProAmatine at 10 mg dosed at 0700, 1100, 1500 Recheck orthostatic BP this afternoon and in AM Follow abdominal US results and if unrevealing will obtain contrast-enhanced MRI tomorrow. Supplement po potassium and recheck labs in AM (renal panel, CBC, Mg) PSA modestly elevated- may need outpatient urology consult if no other malignant issues revealed F/U on pending AFP level
--- NOTE | 2017-05-29 13:01 | Echocardiogram ---
DATE OF PROCEDURE May 28, 2017 This is a two-dimensional echo with spectral Doppler, color-flow and M-mode. It was obtained in a patient with hypertension, pulmonary embolism and syncope. Left atrial dimension is normal. Left ventricular end-diastolic dimension is normal. Left ventricular wall thickness is normal. LV systolic function is normal with ejection fraction of about 66%. Right atrium is normal. Right ventricle is normal. Aortic root dimension is normal. Mitral valve is morphologically normal. Aortic valve appears to be normal. Tricuspid valve shows trace of tricuspid regurgitation with normal estimated pulmonary artery systolic pressure of 21. Pulmonary valve shows trace of pulmonary insufficiency. There is no pericardial effusion. IMPRESSION 1. Normal LV systolic function with ejection fraction of 66%. 2. Trace of tricuspid regurgitation with normal estimated pulmonary artery systolic pressure of 21. 3. Trace of pulmonary insufficiency. MTDD
[2017-05-29] MEDS: NS 1,000 ML IV SCH (15:03)
[2017-05-29] MEDS ORDERED: CYCLOBENZAPRINE 5 MG TABLET PO PRN (18:27)
[2017-05-29] MEDS: SALINE FLUSH 10ml SYRINGE IVF PRN (21:23)
[2017-05-29] MEDS: INSULIN ASPART 100unit/ml INJECTION SQ PRN (21:23)
[2017-05-29] MEDS: ATORVASTATIN 20 MG TABLET PO SCH (21:23)
[2017-05-30] MEDS: MIDODRINE 10 MG TABLET PO SCH ×3 (06:10→14:51)
[2017-05-30] MEDS: INSULIN ASPART 100unit/ml INJECTION SQ PRN (06:11)
[2017-05-30] MEDS: FLUDROCORTISONE 0.1 MG TABLET PO SCH ×2 (06:11→14:52)
[2017-05-30] MEDS: INSULIN ASPART 100unit/ml INJECTION SQ SCH ×3 (08:11→16:37)
[2017-05-30] MEDS: ASPIRIN *EC* 81 MG TABLET PO SCH (08:12)
[2017-05-30] MEDS: METFORMIN 500 MG TABLET PO SCH ×2 (08:12→16:37)
[2017-05-30] MEDS: RIVAROXABAN 15 MG TABLET PO SCH ×2 (08:12→16:37)
[2017-05-30] MEDS: ESCITALOPRAM 10 MG TABLET PO SCH (08:12)
[2017-05-30] MEDS: MULTI-VIT + MINERAL (Opti-gen) TABLET PO SCH (08:12)
[2017-05-30] MEDS ORDERED: NS 50 ML ONE (10:53)
[2017-05-30] MEDS ORDERED: GADOXETATE DISODIUM 2.5 MMOL/10 ML IVP ONE (10:53)
[2017-05-30] MEDS ORDERED: SALINE FLUSH 10ml SYRINGE ONE (10:53)
--- NOTE | 2017-05-30 11:57 | Progress Note ---
- Date 05/30/17 Subjective: Less dizzy yesterday; states he walked the farthest distance he has been able to go since his hip was replaced and had no dizziness with that. Did have tightness in his rib cage that has been intermittent; he feels this is not related to his heart, had cardiac eval in [place] previously and declined EKG yesterday. Flexeril ordered as a trial if this recurs but not having any pain this morning. Discussed negative cancer markers thus far. Rads recommending MRI after review of CTAP and US. Will try to do that today and he is agreeable. Objective Vital signs: Temperature 99.4 F 05/30/17 10:00 Pulse Rate 69 05/30/17 10:00 Respiratory Rate 13 05/29/17 23:55 Blood Pressure 149/82 H 05/30/17 10:00 Pulse Oximetry 96 05/30/17 10:00 Height/Weight/BMI: Weight 115.2 kg - Constitutional Present: no acute distress, well developed, cooperative - Routine HEENT Exam Head: Present: normocephalic, atraumatic Eye: Present: PERRL. Absent: conjunctival icterus ENT: Present: mucous membranes moist, oropharynx clear - Routine Respiratory Exam Present: CTA bilaterally. Absent: rhonchi, wheezes, crackles - Routine Cardiovascular Exam Present: RRR. Absent: murmur - Routine Abdominal Exam Present: soft, non distended, non tender - Routine Extremities Exam Present: no edema, pulses intact - Routine Skin Exam Present: dry, warm. Absent: rash - Routine Neurological Exam Present: alert, oriented X3, vision grossly intact, hearing grossly intact, normal speech - Routine Psychiatric Exam Present: normal affect Results - Labs CBC & Chem 7: 05/30/17 05:08 05/30/17 05:08 Assessment and Plan Assessment and Plan: Impression: Recurrent syncope/near syncope due to orthostatic hypotension Orthostatic hypertension Saddle pulmonary emboli, recent Hypokalemia - not present on admission Diabetes mellitus with neuropathy, chronic insulin therapy Unintentional weight loss Recent hip fracture,s/p left CONCHIS Hypokalemia Concern for occult malignancy; CTAP unrevealing, US pending--> CA 19-9, AFP and CEA normal Plan: Continue to hold further IVF today and monitor on po intake and continue Florinef 0.2 mg twice a day dosed at 0700 and 1400 Obtain MRI with contrast today for further assessment of intrahepatic lesions versus scarring; discussed with reactor technician. Supplement po potassium and recheck labs in AM (renal panel, CBC, Mg) PSA modestly elevated- may need outpatient urology consult if no other malignant issues revealed Encouraged continued ambulation today Will work on DC planning; if doing better tomorrow, able to ambulate and not orthostatic he may be able to DC home. DVT Prophylaxis: Xarelto Resuscitation Status: Full Code - Physician Narrative Narrative: Date: 05/30/17 Time: 1154 Hospital Course Summary Disclaimer: The visit summary below is not to be considered part of the above Progress Note. Hospital Course: 05/26/17-05/27/17-admission Recurrent near syncope/syncope with profound orthostatic hypotension following a recent saddle pulmonary emboli. Patient was found to have left hip fracture at the time of the PE as well and underwent left CONCHIS in late April. Florinef dose increased, continue Midodrine, add NICOLLE hose; hydrate. Unintentional weight loss of 45 pounds over the last 2 months. PSA moderately elevated. We will discuss with urology. Obtaining additional information from [facility]. PT/OT/IRU evaluation. 05/28/17 Continue increased Florinef dose of 0.2 mg timed to be given when he is most active as opposed to a dose in the evening or bedtime. Continue Midodrin. Unable to locate echocardiogram from [place]. Echocardiogram performed here and results are pending. Abdominal CT performed due to his unintentional weight loss showing hepatic vein dilation prompting liver Doppler to be performed as well-no evidence of portal or hepatic vein thrombosis. Continue evaluation for malignancy with SPEP, alpha-fetoprotein, CA-19-9 05/29/17 Hold further IVF today and monitor on po intake and increases Florinef 0.2 mg twice a day dosed at 0700 and 1400 Continue ProAmatine at 10 mg dosed at 0700, 1100, 1500 Recheck orthostatic BP this afternoon and in AM Follow abdominal US results and if unrevealing will obtain contrast-enhanced MRI tomorrow. Supplement po potassium and recheck labs in AM (renal panel, CBC, Mg) PSA modestly elevated- may need outpatient urology consult if no other malignant issues revealed F/U on pending AFP level 05/30/17 Continue to hold further IVF today and monitor on po intake and continue Florinef 0.2 mg twice a day dosed at 0700 and 1400 Obtain MRI with contrast today for further assessment of intrahepatic lesions versus scarring; discussed with reactor technician. Supplement po potassium and recheck labs in AM (renal panel, CBC, Mg) PSA modestly elevated- may need outpatient urology consult if no other malignant issues revealed Encouraged continued ambulation today Will work on DC planning; if doing better tomorrow, able to ambulate and not orthostatic he may be able to DC home.
--- NOTE | 2017-05-30 15:58 | Magnetic Resonance Report ---
Indication: weight loss, recommended after US/CT imaging MR abdomen wo/w con: Comparison: 05/28/2017 CT scan of the abdomen and pelvis Technique: T1 and T2-weighted image sequences with additional post contrast studies. Findings: On the previous study the patient had suggested some potential abnormality with the liver which is suggesting mild diffuse fatty infiltration on today's study. There did not seem to be a definitive focal liver lesion appreciated. No biliary ductal dilatation is identified. Gallbladder appears to be contracted. Spleen, pancreas, adrenals and kidneys seemed unremarkable as does the retroperitoneum. There may be a trace of pleural fluid seen in the right greater than left. No focal abnormality of the bowel is appreciated. No free fluid in the abdomen noted. No intraluminal filling defects identified in either the aorta or IVC. Impression: 1. No specific regional lesion in the liver is appreciated. It didn't showed some potential diffuse fatty infiltration. 2. No other acute intra-abdominal findings. 3. Findings communicated to ordering clinician by the V rad service on a callback basis. .
[2017-05-30] MEDS: ATORVASTATIN 20 MG TABLET PO SCH (20:13)
[2017-05-30] MEDS: SALINE FLUSH 10ml SYRINGE IVF PRN (20:13)
[2017-05-31] MEDS: MIDODRINE 10 MG TABLET PO SCH ×3 (06:17→14:07)
[2017-05-31] MEDS: FLUDROCORTISONE 0.1 MG TABLET PO SCH ×2 (06:17→14:03)
[2017-05-31 07:42] VITALS: O2SAT 97
[2017-05-31] MEDS: METFORMIN 500 MG TABLET PO SCH (08:27)
[2017-05-31] MEDS: ESCITALOPRAM 10 MG TABLET PO SCH (08:27)
[2017-05-31] MEDS: RIVAROXABAN 15 MG TABLET PO SCH (08:27)
[2017-05-31] MEDS: ASPIRIN *EC* 81 MG TABLET PO SCH (08:28)
[2017-05-31] MEDS: MULTI-VIT + MINERAL (Opti-gen) TABLET PO SCH (08:28)
[2017-05-31] MEDS: INSULIN ASPART 100unit/ml INJECTION SQ SCH ×2 (08:56→12:30)
--- NOTE | 2017-05-31 13:27 | Discharge Summary ---
Discharge Information Date of admission: 05/27/17 12:10 Anticipated date of discharge: 05/31/17 Attending Physician: Yessica Welch MD Primary care physician: Chalino Thrasher II, MD - Discharge Diagnosis (1) Syncope due to orthostatic hypotension Status: Acute (2) Pulmonary embolism Status: Acute Recurrent syncope/near syncope due to orthostatic hypotension Orthostatic hypertension Saddle pulmonary emboli, recent Hypokalemia - not present on admission Diabetes mellitus with neuropathy, chronic insulin therapy Unintentional weight loss Recent hip fracture,s/p left CONCHIS Hypokalemia Concern for occult malignancy; CTAP unrevealing, liver Doppler and abdominal MRI essentially negative-> CA 19-9, AFP and CEA normal - Procedures Procedures: Date of Exam: 05/28/17 Type of Exam(s): US echo doppler complete Left atrial dimension is normal. Left ventricular end-diastolic dimension is normal. Left ventricular wall thickness is normal. LV systolic function is normal with ejection fraction of about 66%. Right atrium is normal. Right ventricle is normal. Aortic root dimension is normal. Mitral valve is morphologically normal. Aortic valve appears to be normal. Tricuspid valve shows trace of tricuspid regurgitation with normal estimated pulmonary artery systolic pressure of 21. Pulmonary valve shows trace of pulmonary insufficiency. There is no pericardial effusion. IMPRESSION 1. Normal LV systolic function with ejection fraction of 66%. 2. Trace of tricuspid regurgitation with normal estimated pulmonary artery systolic pressure of 21. 3. Trace of pulmonary insufficiency. - Laboratory Labs: 05/31/17 04:36 05/31/17 04:36 Laboratory Tests 05/27/17 05/27/17 05/27/17 08:04 08:04 08:31 Albumin % (PEP) Albumin (PEP) Effxo-0-Ltdufexce Butxl-1-Bteepadnx (%) Moyan-7-Idtmckznz Yisis-8-Vnhffmyjf (%) Mxya-1-Ttmphzlj Dvef-3-Unhzlfuu (%) Niyc-0-Kbyvqabv Uoua-1-Avppvkkp (%) Gamma Globulins Gamma Globulins (%) Alpha Fetoprotein Carcinoembryonic Ag 0.76 CA 19-9 Antigen PSA Screen 6.6 H Cortisol 30 Minute 28 H Cortisol 60 Minute Cortisol AM Sample 15 05/27/17 05/28/17 05/29/17 09:03 21:32 04:35 Albumin % (PEP) 54.8 Albumin (PEP) 3.6 Hdvzr-5-Xyzmxceau 0.5 Ltmmf-2-Jsuuuhpjt (%) 7.4 Apyue-6-Dudjedepx 0.9 Sirwh-5-Gkauwfvdm (%) 13.5 Zxne-5-Dtnwgakf 0.5 Tdse-8-Efddtzqn (%) 6.9 Rhso-6-Hazolhru 0.4 Ypyw-1-Ingugnpk (%) 6.1 Gamma Globulins 0.8 Gamma Globulins (%) 11.3 Alpha Fetoprotein Carcinoembryonic Ag CA 19-9 Antigen 16 PSA Screen Cortisol 30 Minute Cortisol 60 Minute 25 Cortisol AM Sample 05/29/17 04:35 Albumin % (PEP) Albumin (PEP) Bkuso-2-Bgvwunkfh Sppvb-5-Umynyaxat (%) Xdvdb-6-Ojltjedhe Vhekl-1-Uumvxuigd (%) Lbvw-2-Kkwfvkjv Uflq-4-Haegcphi (%) Uble-8-Zobzqrxm Tchh-9-Suithlco (%) Gamma Globulins Gamma Globulins (%) Alpha Fetoprotein 0.7 Carcinoembryonic Ag CA 19-9 Antigen PSA Screen Cortisol 30 Minute Cortisol 60 Minute Cortisol AM Sample Laboratory Tests 05/28/17 05/29/17 05/30/17 10:21 04:35 05:08 Potassium 3.4 L 3.3 L 3.5 L 05/31/17 04:36 Potassium 3.1 L - Radiology Radiology: Date of Exam: 05/26/17 INDICATION: syncope, hx PE PROCEDURE: CHEST 2-VIEWS UPRIGHT (PA & LAT) FINDINGS: The lungs are clear without evidence of focal abnormal airspace opacity. There is no pleural effusion or pneumothorax. The heart size, mediastinal contours and pulmonary vascularity are within normal limits. There is no significant skeletal abnormality. IMPRESSION: No acute cardiopulmonary disease. = = = = = = = = = = = = = = = = = = = = = = = = = = = = = = = = = = = = = = = = = = = = = = = = = = = = = = = = = = = Date of Exam: 05/28/17 Indication: unexplained wt loss/PE PROCEDURE: CT abdomen pelvis w con: Findings: The lung bases are clear. The liver demonstrates abnormal low-attenuation in segments 8, 5 and 4B. This is somewhat ill-defined and permeative extending along the course of the middle hepatic vein. This is best seen on axial images 14-25. There is also some low attenuation in involving the hepatic dome. The middle hepatic vein also appears asymmetrically enlarged compared to the other veins. The portal vein is widely patent. No bile duct dilatation. The gallbladder is contracted. The spleen is normal. The pancreas and adrenal glands are within normal limits. The kidneys are normal. No abdominal or pelvic adenopathy. There are two oval low-attenuation region seen in the left gluteus diamond muscle measuring up to 3.5 cm in diameter on axial image #81 which appear to track down into a larger left hip joint effusion. Bladder is obscured by metallic artifact from a left hip replacement. Prostate is mildly enlarged. No free fluid or evidence of a bowel obstruction. The appendix is normal. Bone windows show no lytic or blastic osseous lesion. L5 spondylolysis noted without spondylolisthesis. Impression: 1. Abnormal appearance of the liver with areas of decreased attenuation or hypoenhancement seen in the central right lobe. Given the presence of an expanded hepatic vein and the patient's recent pulmonary embolus this could be due to hepatic vein thrombosis and associated perfusion changes or developing hepatic infarct. Recommend correlation with liver function tests. Liver Doppler ultrasound can be performed for further evaluation of the hepatic veins. If these tests are unrevealing a contrast enhanced abdominal MRI would be recommended for further characterization of these changes to exclude a neoplastic/metastatic etiology. Geographic fatty infiltration is also within the differential. 2. No obvious primary malignancy seen in the abdomen or pelvis. = = = = = = = = = = = = = = = = = = = = = = = = = = = = = = = = = = = = = = = = = = = = = = = = = = = = = = = = = = = Date of Exam: 05/28/17 Indication: abnl liver findings on CT, wt loss PROCEDURE: US abd/pelvic doppler complete: Findings: Pancreas could not be visualized due to shadowing bowel gas. Hepatic parenchyma appears heterogeneous with a region of hypoechogenicity in the right lobe corresponding to the abnormality seen on CT. The main portal vein is patent with appropriate flow direction and slightly elevated velocity of 40 cm/s. The left, middle and right hepatic veins appear patent with appropriate flow direction. The hepatic artery is patent with a peak systolic velocity of 39.37 m/s, end diastolic velocity of 16.3 cm/s and resistive index of 0.58. The common bile duct is normal in caliber at 3 mm. The gallbladder is contracted with borderline wall thickening, probably due to the decompressed state. There is an area of sludge or polyp seen in the gallbladder measuring 4 mm in size. Sonographic Hoover's sign was reportedly negative. The right kidney is normal measuring 10.8 cm in length. No hydronephrosis. Impression: Hepatic and portal veins are patent. Heterogeneous echotexture of the liver. This could be due to transient perfusion phenomenon, geographic fatty infiltration, or less likely infiltrative mass. Liver infarct is essentially excluded given the normal AST and ALT. Contrast-enhanced abdominal MRI with Eovist may be helpful for further evaluation = = = = = = = = = = = = = = = = = = = = = = = = = = = = = = = = = = = = = = = = = = = = = = = = = = = = = = = = = = = Date of Exam: 05/30/17 Indication: weight loss, recommended after US/CT imaging MR abdomen wo/w con: Findings: On the previous study the patient had suggested some potential abnormality with the liver which is suggesting mild diffuse fatty infiltration on today's study. There did not seem to be a definitive focal liver lesion appreciated. No biliary ductal dilatation is identified. Gallbladder appears to be contracted. Spleen, pancreas, adrenals and kidneys seemed unremarkable as does the retroperitoneum. There may be a trace of pleural fluid seen in the right greater than left. No focal abnormality of the bowel is appreciated. No free fluid in the abdomen noted. No intraluminal filling defects identified in either the aorta or IVC. Impression: 1. No specific regional lesion in the liver is appreciated. It didn't showed some potential diffuse fatty infiltration. 2. No other acute intra-abdominal findings. 3. Findings communicated to ordering clinician by the V rad service on a callback basis. History of Present Illness HPI: Mr. Sharif is 61-year-old male presents to the emergency room with orthostatic hypotension and syncope. He's had 2 episodes of syncope since being discharged from his rehab stay 2 days earlier. He was initially hospitalized at [facility] on 05/07 with a saddle pulmonary emboli and found to have a hip fracture the following day for which he underwent left total hip arthroplasty on 12/31. He subsequently discharged to [facility] about 5 days later. While at rehabilitation he had multiple near syncopal events due to orthostatic hypotension that required the staff lower him to the floor or a chair to prevent him from actually falling or passing out. He was started on Florinef and ProAmatine and discharged from rehabilitation was delayed due to recurring orthostasis for several days. He was discharged Wednesday of this week and on Wednesday he had a syncopal event without any warning symptoms reported that he simply woke up laying on the floor and somewhat confused. He knows he was walking in the house but did not have any warning lightheadedness or change in his vision to suggest that he was going to pass out. Yesterday he was seen by his home health nurse who could not obtain a standing blood pressure. He again had an episode of feeling very dizzy and nearly falling while walking in the house yesterday but was able to brace himself and prevent the fall by sitting down. Oral intake has been very good he denies nausea/vomiting/diarrhea area and he has not had fever or other symptoms that would suggest volume depletion. He has lost about 45 pounds of weight over the past 8-9 weeks unintentionally. He reports having an echocardiogram and some sort of CT scan done of either his chest or abdomen or both while he was at rehabilitation. Discharge summary from [facility] was obtained and confirms that an echo or CT was not obtained while he was an inpatient. He was anticoagulated with Xarelto for the PE and it does not appear that thrombolyzed this was utilized to need for surgical intervention of the hip. Objective Vital signs: Temperature 98.4 F 05/31/17 07:40 Pulse Rate 65 05/31/17 11:46 Respiratory Rate 16 05/31/17 07:40 Blood Pressure 142/75 H 05/31/17 11:46 Pulse Oximetry 97 05/31/17 07:50 Height/Weight/BMI: Weight 88.1 kg - Constitutional Present: no acute distress, thin - Routine HEENT Exam Head: Present: normocephalic, atraumatic - Routine Respiratory Exam Present: CTA bilaterally. Absent: wheezes - Routine Cardiovascular Exam Present: RRR, no murmur - Routine Abdominal Exam Present: soft, non distended, non tender - Routine Extremities Exam Present: no edema, normal capillary refill - Routine Skin Exam Present: dry, warm - Routine Neurological Exam Present: alert, oriented X3 - Routine Lymphatic Exam Lymphatic: Absent: adenopathy - Routine Psychiatric Exam Present: normal affect, cooperative Hospital Course This is a general summary of the patient's hospital course. For more details refer to the complete medical record. Hospital course: 05/26/17-05/27/17-admission Recurrent near syncope/syncope with profound orthostatic hypotension following a recent saddle pulmonary emboli. Patient was found to have left hip fracture at the time of the PE as well and underwent left CONCHIS in late April. Florinef dose increased, continue Midodrine, add NICOLLE hose; hydrate. Unintentional weight loss of 45 pounds over the last 2 months. PSA moderately elevated. We will discuss with urology. Obtaining additional information from [facility]. PT/OT/IRU evaluation. 05/28/17 Continue increased Florinef dose of 0.2 mg timed to be given when he is most active as opposed to a dose in the evening or bedtime. Continue Midodrin. Unable to locate echocardiogram from [place]. Echocardiogram performed here and results are pending. Abdominal CT performed due to his unintentional weight loss showing hepatic vein dilation prompting liver Doppler to be performed as well-no evidence of portal or hepatic vein thrombosis. Continue evaluation for malignancy with SPEP, alpha-fetoprotein, CA-19-9 05/29/17 Hold further IVF today and monitor on po intake and increases Florinef 0.2 mg twice a day dosed at 0700 and 1400 Continue ProAmatine at 10 mg dosed at 0700, 1100, 1500 Recheck orthostatic BP this afternoon and in AM Follow abdominal US results and if unrevealing will obtain contrast-enhanced MRI tomorrow. Supplement po potassium and recheck labs in AM (renal panel, CBC, Mg) PSA modestly elevated- may need outpatient urology consult if no other malignant issues revealed F/U on pending AFP level 05/30/17 Continue to hold further IVF today and monitor on po intake and continue Florinef 0.2 mg twice a day dosed at 0700 and 1400 Obtain MRI with contrast today for further assessment of intrahepatic lesions versus scarring; discussed with certified pharmacy tech. Supplement po potassium and recheck labs in AM (renal panel, CBC, Mg) PSA modestly elevated- may need outpatient urology consult if no other malignant issues revealed Encouraged continued ambulation today Will work on DC planning; if doing better tomorrow, able to ambulate and not orthostatic he may be able to DC home. 05/31/17 Patient will be discharged home today. Continue Florinef 0.2 mg twice a day dosed at 0700 and 1400 and Midodrin at 0700, 1100, 1500. He has appointment with cardiology in 2 days. He was sent with copy of echocardiogram. Needs follow-up with Dr. Thrasher. He will check his blood pressures at home. If his systolic blood pressure is above 150-hold the Midodrin. Recommend outpatient urology consult regarding his elevated PSA. Needs follow-up of potassium level in a week. Time spent with patient: greater than 35 minutes Resuscitation Status: Full Code Discharge Plan - Discharge Disposition Discharge Date: 05/31/17 Disposition: Discharged Home, Self-Care *Condition: Improved Reason For Visit (Visit label in EMR): Syncope - Discharge Medications *Discharge Medications: New Midodrine [Proamatine] 5 mg PO 0700,1100,1500 tab Potassium Chloride [K-DUR 20 mEq Tablet] 20 meq PO BIDWM #60 tab Fludrocortisone [Florinef] 0.2 mg PO 0700,1400 #60 tab Rivaroxaban [Xarelto] 20 mg PO WS #30 tab Continue Escitalopram Oxalate [Lexapro] 10 mg PO DAILY Atorvastatin [Lipitor] 20 mg PO HS Metformin [Glucophage] 500 mg PO BIDWM Insulin Aspart [Novolog] 1 - 5 unit SQ TIDWM Multivit-Min/FA/Lycopen/Lutein [Centrum Silver Tablet] 1 each PO DAILY Aspirin [Adult Aspirin Regimen] 81 mg PO DAILY Discontinued Rivaroxaban [Xarelto] 15 mg PO BID Fludrocortisone [Florinef] 0.1 mg PO BID Midodrine [Proamatine] 10 mg PO TID - Discharge Packet/Instructions *Diet: Regular diet *Activity: As tolerated, with walker *Pain Management/Treatment: n/a *Wound Care: n/a Additional Instructions: Keep appointment with leg man this Wednesday. Take a copy of the echocardiogram along with you. Be sure to follow-up up with Dr. Thrasher. He can discuss urology referral at that appointment given your elevated prostate blood test. *Expected Signs/Symptoms: n/a *Notify Physician if: You have further falls or your blood pressure is not controlled. *During Business Hours Contact: Dr. Thrasher's office *After Business Hours Contact: Dr. Thrasher's office and follow after-hours instructions *Pending Lab/Results: Follow up w/Provider - Referrals/Follow Up *Referrals/Follow Up: Chalino Thrasher II, MD [Family Provider] - 1 Week (Please schedule patient to see Dr. Thrasher in 1 week. Please make sure he has a follow-up CBC and BMP in 1 week. Follow up appointment scheduled for 06/04/17 at 2:[address] Thrasher.) - Patient Handouts Patient Handouts: Syncope (GEN), Hypotension (DC) - Dismissal Complete Discharge Instructions are:: Complete Physician Narrative - Narrative Physician: Yessica Welch MD Attestation Narrative: Date: 05/31/17 Time: 2240 Ez was seen earlier in the day and reported he's had no dizziness for over 48 hours and his appetite is somewhat improved. Standing blood pressure this morning was 141/78. Midodrine has been held on several occasions due to elevated systolic pressures. The patient is alert and in no distress; respirations are nonlabored with good airflow and clear breath sounds somewhat; cardiac rhythm is regular with normal S1 and S2. No peripheral edema was noted. Stable for discharge, continue Florinef at 0.2 mg twice a day with midodrine 5 mg 3 times a day. Patient to monitor his blood pressure routinely. He reported that he is scheduled for follow-up with leg man in [place] in 2 days. He is to reschedule new patient appointment with Dr. Thrasher as soon as possible. Serum protein electrophoresis was not available prior to discharge but subsequently returned with normal electrophoretic pattern and no evidence of monoclonal peak.
[2017-05-31 14:03] VITALS: BP 152/84; PULSE 68; RESP 18; TEMP 98.6
== END 2017-05-31 15:00 | disposition home health service (06) | DRG 312 ==
LOC: MED 16:50 → ED 16:50 → MED 20:00
PROVIDERS: ADMIT Pediatrics; ATTEND Internal Medicine